=== PATIENT | female | born 1940 | race Caucasian/White ===

== ENCOUNTER 2016-09-22 05:13 | Day surgery (SDC) | payer MEDICARE, OTHER ==
[2016-09-22] MEDS ORDERED: fentaNYL 100 MCG/2 ML SDV ONE (06:18)
[2016-09-22] MEDS ORDERED: Midazolam 1 MG/ML 2 ML SDV ONE (06:18)
[2016-09-22] MEDS ORDERED: fentaNYL 100 MCG/2 ML SDV IV ONE ×3 (06:30→12:51)
[2016-09-22] MEDS ORDERED: Midazolam 1 MG/ML 2 ML SDV IV ONE ×3 (06:31→12:51)
[2016-09-22] MEDS ORDERED: Dextrose 5%-0.45% NaCl 1,000 ML IV SCH (07:00)
[2016-09-22] MEDS ORDERED: Sodium Chloride 0.9% 10 ML Syringe FLUSH PRN (07:00)
--- NOTE | 2016-09-22 07:27 | OR ---
DATE: 09/22/2016 PROCEDURE: Esophagogastroduodenoscopy and multiple pinch biopsies. INSTRUMENT USED: GIF-H180 Olympus video panendoscope. PREMEDICATIONS: No oral topical anesthesia used. Fentanyl 100 mcg intravenous, Versed 1.5 mg intravenous. Nasal 2 L O2 cannula. 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 INDICATION: The patient with persistent cough as well as associated throat discomfort, unexplained and not responsive to medical measures, on acid suppressants. Esophagogastroduodenoscopy is performed for detection of any active erosive lesions, Vinson esophagus and/or malignancy also under consideration, H. pylori status to be determined, endoscopic hemostasis therapy if needed. The scope was passed with ease. Adequate visualization of the esophagus was made from proximal to distal areas. No upper esophageal lesions identified. No distal esophageal stricture. No uphill or downhill esophageal varices. No Noemi-Jung tear. No evidence of erosive esophagitis by Warwick criteria. No esophageal polyp or tumor mass identified. No proximal gastric varices noted. Gastric fundus examination by retroflexion showed no polypoid lesions. No gastric ulcer, malignant mass, or vascular ectasia identified. Duodenal bulb showed no ulcer. Visualized second part of the duodenum was unremarkable. Multiple pinch biopsies were taken from the gastric antrum and proximal body and sent for PyloriTek test for H. pylori histopathology. Four-quadrant biopsies were taken from the distal and proximal esophagus and sent for any evidence of esophageal eosinophilia. No bleeding was noted from any of the visualized areas at the completion of examination. Photographs were taken of the duodenal bulb, gastric antrum, fundus, and distal esophagus. IMPRESSION: Normal study. The patient tolerated the procedure well. [facility] /[id number]
[2016-11-09 13:34] VITALS: BP 111/46
== END 2016-09-22 08:45 | disposition home or self-care (01) ==
LOC: DL.ENDO 05:13
PROVIDERS: ATTEND Internal Medicine Gastroenterology
DX: R05 Cough (principal); R07.0 Pain in throat; E78.00 Pure hypercholesterolemia, unspecified; N39.3 Stress incontinence (female) (male); Z98.51 Tubal ligation status; Z98.890 Other specified postprocedural states
CPT/HCPCS: 43239; 87077; J2250; J3010; J7042; 88305

== ENCOUNTER 2016-09-30 15:06 | Emergency (ER) | payer MEDICARE, OTHER ==
--- NOTE | 2016-09-30 17:58 | EDM.PDOC ---
Scribed by Enid Oliveira 09/30/16 [id number] for Yrody Moctezuma MD ED HPI Trauma - General Chief Complaint: Upper Extremity Injury/Pain Stated Complaint: RT UPPER ARM SWELLING FROM PNEU. SHOT Time Seen by Provider: 09/30/16 15:25 Source: Reports: Patient, RN, RN notes reviewed History Limitations: Reports: No limitations - History of Present Illness INITIAL COMMENTS - FREE TEXT/NARRATIVE: Patietnt complains of redness, pain and mild itching and swelling to left upper arm at site of pneumonia vaccine.Vaccine was given yesterday at [facility]. Denies any other areas of itching, redness or hives. Symptom Onset Date: 09/22/16 Severity: moderate Pain/Injury Location: Reports: lower extremity, left Associated Symptoms: Reports: no other symptoms Allergies/ADRs: Allergies No Known Allergies Allergy (Verified 09/30/16 15:18) Home Medications: Ambulatory Orders Alendronate [Fosamax] 1 tab PO WEEKLY 03/23/16 [Confirmed 09/30/16] Rosuvastatin Calcium [Crestor] 1 tab PO BEDTIME 03/23/16 [Confirmed 09/30/16] Acetaminophen [Tylenol] 650 mg PO Q6H PRN 09/20/16 [Confirmed 09/30/16] Calcium Carbonate/Vitamin D3 [Calcium 600 + Vit D 200] 1 tab PO DAILY 09/20/16 [ Confirmed 09/30/16] Ibuprofen [Advil] 200 mg PO Q6H PRN 09/20/16 [Confirmed 09/30/16] Methylcellulose (with Sugar) [Citrucel] 454 gm PO BID 09/20/16 [Confirmed ] Multivitamin [Multivitamins] 1 tab PO DAILY 09/20/16 [Confirmed 09/30/16] Omeprazole 20 mg PO BIDAC 09/30/16 [Confirmed 09/30/16] Past Medical History HEENT History: Reports: Cataract, Impaired vision Cardiovascular History: Reports: High cholesterol Respiratory History: Reports: Other (see below) Other Respiratory History: chronic cough Gastrointestinal History: Reports: None Genitourinary History: Reports: None, Urinary incontinence 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 Dermatologic History: Reports: None - Infectious Disease History Infectious Disease History: Reports: Chicken pox, Measles - Past Surgical History Female Surgical History: Reports: Tubal ligation, Other (see below) Social & Family History - Family History Family Medical History: Noncontributory - Tobacco Use Smoking Status *Q: Never Smoker Second Hand Smoke Exposure: Yes - Caffeine Use Caffeine Use: Reports: Coffee, Tea Caffeine Use Comment: 1 cup - Recreational Drug Use Recreational Drug Use: No Review of Systems - Review of Systems Review Of Systems: ROS reveals no pertinent complaints other than HPI. Trauma Exam - Physical Exam Exam: See Below Exam Limited By: No limitations General Appearance: Reports: alert Head: Reports: atraumatic, normocephalic Eyes: bilateral eye: normal inspection Ears: Reports: normal external exam, normal canal, hearing grossly normal, normal TMs Nose: Reports: normal inspection, normal mucousa, no blood Throat/Mouth: Reports: Normal inspection, Normal lips, Normal teeth, Normal gums , Normal oropharynx, Normal voice, No airway compromise Neck: Reports: other (normal lymph nodes axillary.) Respiratory Exam: Reports: no respiratory distress, lungs clear, normal breath sounds Cardiovascular: Reports: normal peripheral pulses, regular rate, rhythm, no edema, no gallop, no JVD, no murmur, no rub Back: Reports: full range of motion, normal inspection, non-tender Extremities: Reports: no evidence of injury, normal range of motion, non-tender , no pedal edema, pelvis stable 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 Very slight increased warmth.) Course - Vital Signs Last Recorded V/S: Last Vital Signs Temp 35.3 C 09/30/16 15:14 Pulse 76 09/30/16 15:14 Resp 18 09/30/16 15:14 BP 112/54 L 09/30/16 15:14 Pulse Ox 100 09/30/16 15:14 Departure - Departure Time of Disposition: 15:36 Disposition: Home, Self-Care 01 Condition: good Clinical Impression: Local reaction to pneumococcal vaccine Qualifiers: Encounter type: initial encounter Qualified Code(s): T50.A95A - Adverse effect of other bacterial vaccines, initial encounter Instructions: Pneumococcal Vaccine, Polyvalent suspension for injection, Post- Injection Inflammatory Reaction Forms: ED Department Discharge Additional Instructions: Follow up in clinic if it is not improving in the next 1-2 days. Return to ER if it is worse. Use over the counter Claritin 10mg or Zyrtec 10mg one tablet daily until redness completely resolved. I have read and agree with the documentation that has been completed regarding this visit. By signing this record, I attest that the documentation was completed in my physical presence and is an accurate record of the encounter.
== END 2016-09-30 15:50 | disposition home or self-care (01) ==
LOC: DL.ED 15:06
CPT/HCPCS: 99282; 99283

== ENCOUNTER 2017-05-09 07:33 | Day surgery (SDC) | payer MEDICARE, OTHER ==
[~2017-05-09 07:33] MED LIST: Acetaminophen 325 MG Tab PO PRN; Acetaminophen/Codeine 300-30 MG Tab PO PRN; Balanced Salt Solution Plus Ophth Irrig 500 ML Bottle ONE; Cataract Ophth Solution EYERT ONE; Moxifloxacin 0.5% Ophth Soln 3 ML Bottle EYERT ONE; Ondansetron 4 MG/2 ML SDV IVPUSH PRN; Phenylephrine 10% Ophth Soln 5 ML Bot EYERT ONE; Phenylephrine 10% Ophth Soln 5 ML Bot EYERT PRN; Povidone-Iodine 5% Sterile Ophth Soln 30 ML Bottle EYERT ONE; Proparacaine 0.5% Ophth Soln 15 ML Bottle EYERT ONE; Sodium Chloride 0.9% 10 ML Syringe FLUSH PRN; Timolol Maleate 0.5% Ophth Soln 5 ML Bottle EYERT ONE
[2017-05-09] MEDS ORDERED: Dexamethasone 4 MG/ML SDV IV ONE (07:34)
[2017-05-09] MEDS ORDERED: Midazolam 1 MG/ML 2 ML SDV IV ONE (07:34)
[2017-05-09] MEDS ORDERED: Dexamethasone 4 MG/ML SDV ONE (08:32)
[2017-05-09] MEDS ORDERED: Midazolam 1 MG/ML 2 ML SDV ONE (08:32)
[2017-05-09] MEDS ORDERED: Tetracaine HCl/PF 0.5% 4 ML Bottle EYERT ONE (09:01)
[2017-05-09] MEDS ORDERED: Lidocaine 1% 30 ML SDV ONE (09:01)
[2017-05-09] MEDS ORDERED: Vancomycin 500 MG SDV EYERT ONE (09:01)
[2017-05-09] MEDS ORDERED: Balanced Salt Solution Ophth Irrig 500 ML Bottle IOCULAR ONE (09:01)
[2017-05-09] MEDS ORDERED: Chondroitin Sulfate/Hyaluronate Sodium Ophth Inj 0.75 ML Syringe EYERT ONE (09:01)
[2017-05-09] MEDS ORDERED: Povidone-Iodine 5% Sterile Ophth Soln 30 ML Bottle EYERT ONE (09:01)
[2017-05-09] MEDS ORDERED: Dexamethasone/Neomycin/Polymyxin B Ophth Oint 3.5 GM Tube EYERT ONE (09:02)
[2017-05-09] MEDS ORDERED: Diclofenac Sodium 0.1% Ophth Soln 5 ML Bottle EYERT ONE (09:02)
[2017-05-09] MEDS ORDERED: Apraclonidine 0.5% Ophth Soln 5 ML Bot EYERT ONE (09:02)
[2017-05-09] MEDS ORDERED: Dexamethasone 4 MG/ML SDV IOCULAR ONE (09:04)
[2017-05-09] MEDS ORDERED: Balanced Salt Solution Plus Ophth Irrig 500 ML Bottle IOCULAR ONE (09:05)
[2017-05-09] MEDS ORDERED: Chondroitin Sulfate/Hyaluronate Sodium Ophth Inj 0.5 ML Syringe IOCULAR ONE (09:09)
--- NOTE | 2017-05-09 12:11 | OR ---
DATE: 05/09/2017 PREOPERATIVE DIAGNOSIS: Cataract, right eye. POSTOPERATIVE DIAGNOSIS: Cataract, right eye. PROCEDURE: Extracapsular cataract extraction with intraocular lens implant, right eye. ANESTHESIA: Topical/local MAC. COMPLICATIONS: No complications occurred. INDICATION: Ms. Ash is seen in the clinic. Her examination revealed visually significant cataract with best spectacle corrected vision of 20/200. I explained options; I offered cataract surgery; and I explained risks including but not limited to infection, retinal detachment, loss of vision, need for additional surgery, and risks associated with anesthesia. She has preexisting corneal guttata, and I also explained the potential for corneal decompensation increased given the fairly advanced nature of her cataract. She voiced an understanding with respect to risks. I recommended a monofocal implant. She voiced an understanding and wished to proceed. OPERATIVE DESCRIPTION: After informed consent was obtained and the risks, benefits, and alternatives were explained, the patient was brought to the operative suite and topical anesthesia was administered. The patient was then prepped and draped in the sterile fashion and attention was placed on the right eye. A sterile lid speculum was placed into the right eye to allow operative exposure. A full-thickness paracentesis was made in the temporal portion of the operative eye. A full-thickness corneal incision was then made into the anterior chamber. A bent needle cystotome was used to create a small clair in the anterior capsule. The capsulorrhexis forceps was then used to create a 360- degree curvilinear capsulorrhexis. The nucleus was then removed using a phacoemulsification handpiece and the remaining cortical material was then removed with irrigation and aspiration handpiece. Following removal of the cortical material, the capsular bag was then inspected and noted to be free of any holes or tears. Viscoelastic was then injected into the capsular bag and the intraocular lens was inserted into the capsular bag. The viscoelastic material was then removed from both the anterior and posterior chambers and from behind the IOL. The lens and capsular bag were then reinspected. The IOL was well centered and the capsular bag intact. The wound and paracentesis sites were inspected and hydrated with balanced saline solution. Both were found to be self-sealing. The intraocular pressure was assessed digitally and found to be within normal range. A good red reflex was noted at the completion of the procedure. No complications occurred during the operation. At the completion of the procedure, Maxitrol, Voltaren, and Iopidine drops were placed into the operative eye. A sterile eye shield was placed over the operative eye and the patient was transported to the postoperative recovery area having tolerated the procedure well. Postoperative instructions were given along with a postoperative appointment. The patient was advised to call with any questions or concerns. [facility] /[id number]
[2017-05-09 14:56] VITALS: BP 102/53
== END 2017-05-09 10:20 | disposition home or self-care (01) ==
LOC: DL.SDS 07:33
PROVIDERS: ATTEND Ophthalmology
DX: H25.811 Combined forms of age-related cataract, right eye (principal); E78.00 Pure hypercholesterolemia, unspecified; Z98.890 Other specified postprocedural states; Z98.51 Tubal ligation status
CPT/HCPCS: 00142; 66984; A9270; J1100; J2250; J3370; J7050; V2632

== ENCOUNTER → 2017-05-16 | Day surgery (SDC) | payer MEDICARE, OTHER ==
[~2017-05-16] MED LIST changes: -Acetaminophen 325 MG Tab PO PRN; -Acetaminophen/Codeine 300-30 MG Tab PO PRN; +Apraclonidine 0.5% Ophth Soln 5 ML Bot EYELF ONE; +Balanced Salt Solution Plus Ophth Irrig 500 ML Bottle IOCULAR ONE; -Cataract Ophth Solution EYERT ONE; +Chondroitin Sulfate/Hyaluronate Sodium Ophth Inj 0.75 ML Syringe EYELF ONE; +Dexamethasone 4 MG/ML SDV IV ONE; +Dexamethasone 4 MG/ML SDV ONE; +Dexamethasone/Neomycin/Polymyxin B Ophth Oint 3.5 GM Tube EYELF ONE; +Diclofenac Sodium 0.1% Ophth Soln 5 ML Bottle EYELF ONE; +Lidocaine 1% 30 ML SDV ONE; +Midazolam 1 MG/ML 2 ML SDV IV ONE; +Midazolam 1 MG/ML 2 ML SDV ONE; +Moxifloxacin 0.5% Ophth Soln 3 ML Bottle EYELF ONE; -Moxifloxacin 0.5% Ophth Soln 3 ML Bottle EYERT ONE; -Ondansetron 4 MG/2 ML SDV IVPUSH PRN; +Phenylephrine 10% Ophth Soln 5 ML Bot EYELF ONE; -Phenylephrine 10% Ophth Soln 5 ML Bot EYERT ONE; -Phenylephrine 10% Ophth Soln 5 ML Bot EYERT PRN; +Povidone-Iodine 5% Sterile Ophth Soln 30 ML Bottle EYELF ONE; -Povidone-Iodine 5% Sterile Ophth Soln 30 ML Bottle EYERT ONE; +Proparacaine 0.5% Ophth Soln 15 ML Bottle EYELF ONE; -Proparacaine 0.5% Ophth Soln 15 ML Bottle EYERT ONE; +Tetracaine HCl/PF 0.5% 4 ML Bottle EYELF ONE; +Timolol Maleate 0.5% Ophth Soln 5 ML Bottle EYELF ONE; -Timolol Maleate 0.5% Ophth Soln 5 ML Bottle EYERT ONE; +Vancomycin 500 MG SDV EYELF ONE
[2017-05-16] MEDS: Dilation Soln 1 EA EACH EYELF ONE ×2 (07:00→07:04)
--- NOTE | 2017-05-16 09:50 | OR ---
DATE: 05/16/2017 PREOPERATIVE DIAGNOSIS: Cataract, left eye. POSTOPERATIVE DIAGNOSIS: Cataract, left eye. PROCEDURE: Extracapsular cataract extraction with intraocular lens implant, left eye. ANESTHESIA: Topical/local MAC. COMPLICATIONS: None. INDICATION: Mrs. Ash was seen in the clinic. She has complained of a slow change in vision. Clinical examination reveals visually significant cataract. Examination also reveals corneal guttata. I explained options. I offered cataract surgery, and I explained risks including but not limited to, infection, retinal detachment, loss of vision, corneal decompensation, need for additional surgery, and risks associated with anesthesia amongst others. We discussed implant options. I recommended a monofocal implant. She understands that she may require glasses following surgery. She voiced an understanding with respect to risks and wished to proceed. OPERATIVE DESCRIPTION: After informed consent was obtained and the risks, benefits, and alternatives were explained, the patient was brought to the operative suite and topical anesthesia was administered. The patient was then prepped and draped in the sterile fashion and attention was placed on the left eye. A sterile lid speculum was placed into the left eye to allow operative exposure. A full-thickness paracentesis was made in the temporal portion of the operative eye. No intraocular lidocaine was used in this case. A full-thickness corneal incision was then made into the anterior chamber. A bent needle cystotome was used to create a small clair in the anterior capsule. The capsulorrhexis forceps was then used to create a 360-degree curvilinear capsulorrhexis. The nucleus was then removed using a phacoemulsification handpiece and the remaining cortical material was then removed with irrigation and aspiration handpiece. Following removal of the cortical material, the capsular bag was then inspected and noted to be free of any holes or tears. Viscoelastic was then injected into the capsular bag and the intraocular lens was inserted into the capsular bag. The viscoelastic material was then removed from both the anterior and posterior chambers and from behind the IOL. The lens and capsular bag were then reinspected. The IOL was well centered and the capsular bag intact. The wound and paracentesis sites were inspected and hydrated with balanced saline solution. Both were found to be self-sealing. The intraocular pressure was assessed digitally and found to be within normal range. A good red reflex was noted at the completion of the procedure. No complications occurred during the operation. At the completion of the procedure, Rudy Crystaln, and Iopidine drops were placed into the operative eye. A sterile eye shield was placed over the operative eye and the patient was transported to the postoperative recovery area having tolerated the procedure well. Postoperative instructions were given along with a postoperative appointment. The patient was advised to call with any questions or concerns. No complications occurred. [facility] /[id number]
[2017-05-16 13:24] VITALS: BP 110/57
== END | disposition home or self-care (01) ==
LOC: DL.SDS 06:28
PROVIDERS: ATTEND Ophthalmology
DX: H25.812 Combined forms of age-related cataract, left eye (principal); E78.00 Pure hypercholesterolemia, unspecified; Z98.890 Other specified postprocedural states; Z98.51 Tubal ligation status
CPT/HCPCS: 00142; 66984; A9270; J1100; J2250; J3370; J7050; V2632